=== PATIENT | male | born 1975 | race Caucasian/White ===

== ENCOUNTER 2018-04-16 11:41 | Observation (INO) ==
[2018-04-16 12:15] LABS: Basophils # 0.1 K/mcL (0.0-0.2); Basophils % 0.7 %; Eosinophils # 0.5 K/mcL (0.0-0.6); Eosinophils % 4.8 %; Hematocrit 41.7 % (37.5-50.1); Hemoglobin 13.7 g/dL (12.9-16.9); Immature Granulocytes % 1.1 % (0-4); Lymphocytes # 2.5 K/mcL (0.6-4.6); Lymphocytes % 25.5 %; Mean Corpuscular HGB Conc 32.9 g/dL (31.6-35.5); Mean Corpuscular Hemoglobin 26.9 pg (28.0-33.3); Mean Corpuscular Volume 81.8 fL (83.0-100.0); Mean Platelet Volume 10.8 fL (9.4-12.4); Monocytes # 0.8 K/mcL (0.0-1.3); Monocytes % 7.8 %; Neutrophils # 5.9 K/mcL (1.6-8.9); Platelet Count 224 K/mcL (140-400); Red Cell Distribution Width 13.1 % (11.5-14.5); Segmented Neutrophils % 60.1 %
[2018-04-16 12:36] LABS: BUN/Creatinine Ratio 17 (6-26); Blood Urea Nitrogen 14 mg/dL (6-20); Carbon Dioxide 27 mEq/L (23-29); Chloride 103 mEq/L (98-107); Glucose 119 mg/dL (70-105); Osmolality,Calculated 284 (280-300); Potassium 4.2 mEq/L (3.5-5.1); Sodium 136 mEq/L (136-145); eGFR For Non-African Americans > 60 (> 60)
[2018-04-16 12:38] LABS: Troponin I < 0.03 ng/mL (< 0.04)
--- NOTE | 2018-04-16 13:05 | Emergency Department Note ---
Disposition Clinical Impression: Exertional dyspnea Disposition: Admitted As Inpatient Condition: Fair Time of Disposition: 19:44 General Adult HPI - General Chief complaint: ED Arrhythmia/Palpitations Stated complaint: HHR Time Seen by Provider: 04/16/18 11:51 Source: patient, family Mode of arrival: ambulatory Limitations: no limitations Nursing Notes Reviewed: Yes Vital Signs Reviewed: Yes - History of Present Illness HPI Narrative: Patient is a 42-year-old male with a past medical history of hypertension presents to the emergency department for exertional dyspnea and palpitations. Patient states over the past week whenever he is tender to climb stairs by time he gets to the top he feels like he is short of breath and that his heart is racing. States this is not normal for him. He denies any associated chest pain. No recent fevers, cough, nausea, vomiting, abdominal pain or other associated symptoms. Pain Scale: 0 - Related Data Home Medications Medication Instructions Recorded Confirmed Lisinopril [Zestril] 40 mg PO DAILY 04/16/18 04/16/18 Naproxen Sodium [Aleve] 440 mg PO DAILY 04/16/18 04/16/18 Allergies Allergy/AdvReac Type Severity Reaction Status Date / Time No Known Allergies Allergy Verified 04/16/18 11:46 All systems ED: reviewed and negative except as stated. Review of Systems: As Per HPI Constitutional: Denies: fever, chills Cardiovascular: Reports: dyspnea on exertion. Denies: chest pain, palpitations, edema, syncope Respiratory: Denies: cough, dyspnea, wheezes Gastrointestinal: Denies: abdominal pain, nausea, vomiting Musculoskeletal: Denies: back pain, neck pain Integumentary: Denies: rash Neurological: Denies: headache, weakness, numbness, paresthesias Past Medical History - Past Medical History Attestation: Yes The following information was validated with the patient. Medical history: Reports: hypertension Psychiatric history: Reports: no psych history - Social History Smoking Status: Never smoker Smokeless Tobacco Status: No Alcohol use: Reports: occasionally Drug use: Reports: none Physical Exam CONSTITUTIONAL: Well-appearing; well-nourished; A&O X 3, in no apparent distress. HEAD: Normocephalic; atraumatic EYES: PERRL, no scleral icterus NOSE: The nose is normal in appearance without rhinorrhea NECK: No JVD or distended neck veins RESP: Normal chest excursion with respiration; breath sounds clear and equal bilaterally; no wheezes, rhonchi, or rales CARD: Regular rhythm, without murmurs, rub or gallop ABD: Non-distended; non-tender, soft, without rigidity, rebound or guarding,no pulsatile mass CHEST: No pain with palpation SKIN: Normal for age and race; warm and dry without diaphoresis ; no apparent lesions EXTREMITIES: Pulses are 2 plus and equal times 4 extremities, no peripheral edema or calf muscle pain - General Limitations: no limitations General appearance: alert, in no apparent distress Course Course Narrative: Patient underwent evaluation for his exertional dyspnea as well as palpitations. His CBC, d-dimer as well as his metabolic panel were unremarkable. Troponin was negative. Discussed patient's case with hospitalist on-call and my concern of this recent onset of palpitations as well as dyspnea with exertion upstairs.. Except the patient for further observation and evaluation. Vital Signs Temperature 98.5 F 04/16/18 11:45 Pulse Rate 107 04/16/18 11:45 Respiratory Rate 20 04/16/18 11:45 Blood Pressure 123/86 04/16/18 11:45 O2 Sat by Pulse Oximetry 99 04/16/18 11:45 Temperature 98.4 F 04/16/18 17:35 Pulse Rate 96 04/16/18 17:35 Respiratory Rate 17 04/16/18 17:35 Blood Pressure 139/86 04/16/18 17:35 O2 Sat by Pulse Oximetry 96 04/16/18 17:35 Oxygen Delivery Oxygen Delivery Room Air Medical Decision Making - Medical Records Medical records reviewed: Yes I reviewed the patient's medical records. - Lab Data Lab results reviewed: Yes I reviewed the patient's lab results. Result diagrams: 04/16/18 12:00 04/16/18 12:00 Lab Results 04/16/18 04/16/18 04/16/18 Range/Units 12:00 12:00 12:00 WBC 9.8 (4.3-11.1) K/mcL RBC 5.10 (4.19-5.50) M/mcL Hgb 13.7 (12.9-16.9) g/dL Hct 41.7 (37.5-50.1) % MCV 81.8 L (83.0-100.0) fL MCH 26.9 L (28.0-33.3) pg MCHC 32.9 (31.6-35.5) g/dL RDW 13.1 (11.5-14.5) % Plt Count 224 (140-400) K/mcL MPV 10.8 (9.4-12.4) fL Immature Gran % 1.1 (0-4) % Seg Neutrophils % 60.1 % Lymphocytes % 25.5 % Monocytes % 7.8 % Eosinophils % 4.8 % Basophils % 0.7 % Neutrophils # 5.9 (1.6-8.9) K/mcL Lymphocytes # 2.5 (0.6-4.6) K/mcL Monocytes # 0.8 (0.0-1.3) K/mcL Eosinophils # 0.5 (0.0-0.6) K/mcL Basophils # 0.1 (0.0-0.2) K/mcL D-Dimer (0-500) ng/mLFEU Sodium 136 (136-145) mEq/L Potassium 4.2 (3.5-5.1) mEq/L Chloride 103 (98-107) mEq/L Carbon Dioxide 27 (23-29) mEq/L BUN 14 (6-20) mg/dL Creatinine 0.84 (0.70-1.30) mg/dL Est GFR ( Amer) > 60 (> 60) Est GFR (Non-Af Amer) > 60 (> 60) BUN/Creatinine Ratio 17 (6-26) Glucose 119 H (70-105) mg/dL Calculated Osmolality 284 (280-300) Calcium 10.0 (8.6-10.3) mg/dL Troponin I < 0.03 (< 0.04) ng/mL B-Natriuretic Peptide 22 (Less than 100) pg/mL 04/16/18 Range/Units 15:18 WBC (4.3-11.1) K/mcL RBC (4.19-5.50) M/mcL Hgb (12.9-16.9) g/dL Hct (37.5-50.1) % MCV (83.0-100.0) fL MCH (28.0-33.3) pg MCHC (31.6-35.5) g/dL RDW (11.5-14.5) % Plt Count (140-400) K/mcL MPV (9.4-12.4) fL Immature Gran % (0-4) % Seg Neutrophils % % Lymphocytes % % Monocytes % % Eosinophils % % Basophils % % Neutrophils # (1.6-8.9) K/mcL Lymphocytes # (0.6-4.6) K/mcL Monocytes # (0.0-1.3) K/mcL Eosinophils # (0.0-0.6) K/mcL Basophils # (0.0-0.2) K/mcL D-Dimer 382 (0-500) ng/mLFEU Sodium (136-145) mEq/L Potassium (3.5-5.1) mEq/L Chloride (98-107) mEq/L Carbon Dioxide (23-29) mEq/L BUN (6-20) mg/dL Creatinine (0.70-1.30) mg/dL Est GFR ( Amer) (> 60) Est GFR (Non-Af Amer) (> 60) BUN/Creatinine Ratio (6-26) Glucose (70-105) mg/dL Calculated Osmolality (280-300) Calcium (8.6-10.3) mg/dL Troponin I (< 0.04) ng/mL B-Natriuretic Peptide (Less than 100) pg/mL - Radiology Data Radiology results reviewed: Yes I reviewed the patient's radiology results. Chest X-Ray 04/16/18 11:57 IMPRESSION: No acute process. D/ / Gamal Braun MD / Gamal Braun MD Interpreting Provider: Gamal Braun MD - EKG Data EKG #1 EKG attestation: Yes I reviewed and interpreted this EKG.
[2018-04-16] MEDS ORDERED: Aspirin 325 MG TABLET PO ONE (13:21)
--- NOTE | 2018-04-16 13:21 | Emergency Department Note ---
Disposition Clinical Impression: Exertional dyspnea Disposition: Admitted As Inpatient Referrals: Ada Hughes, CLINICAL APPLICATION CONSULTANT [Primary Care Provider] - Forms: ED Satisfaction Letter General Adult HPI - General Chief complaint: ED Arrhythmia/Palpitations Stated complaint: HHR Time Seen by Provider: 04/16/18 11:51 Source: patient, family Limitations: no limitations - History of Present Illness Pain Scale: 0 - Related Data Allergies Allergy/AdvReac Type Severity Reaction Status Date / Time No Known Allergies Allergy Verified 04/16/18 11:46 Past Medical History - Past Medical History Medical history: Reports: hypertension Psychiatric history: Reports: no psych history - Social History Smoking Status: Never smoker Smokeless Tobacco Status: No Alcohol use: Reports: occasionally Drug use: Reports: none Physical Exam - General Limitations: no limitations General appearance: alert, in no apparent distress Course Vital Signs Temperature 98.5 F 04/16/18 11:45 Pulse Rate 107 04/16/18 11:45 Respiratory Rate 20 04/16/18 11:45 Blood Pressure 123/86 04/16/18 11:45 O2 Sat by Pulse Oximetry 99 04/16/18 11:45 Temperature 98.5 F 04/16/18 11:49 Pulse Rate 107 04/16/18 11:49 Respiratory Rate 20 04/16/18 11:49 Blood Pressure 123/86 04/16/18 11:49 O2 Sat by Pulse Oximetry 99 04/16/18 11:49 Oxygen Delivery Oxygen Delivery Room Air Medical Decision Making - Lab Data Result diagrams: 04/16/18 12:00 04/16/18 12:00 Lab Results 04/16/18 04/16/18 04/16/18 Range/Units 12:00 12:00 12:00 WBC 9.8 (4.3-11.1) K/mcL RBC 5.10 (4.19-5.50) M/mcL Hgb 13.7 (12.9-16.9) g/dL Hct 41.7 (37.5-50.1) % MCV 81.8 L (83.0-100.0) fL MCH 26.9 L (28.0-33.3) pg MCHC 32.9 (31.6-35.5) g/dL RDW 13.1 (11.5-14.5) % Plt Count 224 (140-400) K/mcL MPV 10.8 (9.4-12.4) fL Immature Gran % 1.1 (0-4) % Seg Neutrophils % 60.1 % Lymphocytes % 25.5 % Monocytes % 7.8 % Eosinophils % 4.8 % Basophils % 0.7 % Neutrophils # 5.9 (1.6-8.9) K/mcL Lymphocytes # 2.5 (0.6-4.6) K/mcL Monocytes # 0.8 (0.0-1.3) K/mcL Eosinophils # 0.5 (0.0-0.6) K/mcL Basophils # 0.1 (0.0-0.2) K/mcL Sodium 136 (136-145) mEq/L Potassium 4.2 (3.5-5.1) mEq/L Chloride 103 (98-107) mEq/L Carbon Dioxide 27 (23-29) mEq/L BUN 14 (6-20) mg/dL Creatinine 0.84 (0.70-1.30) mg/dL Est GFR ( Amer) > 60 (> 60) Est GFR (Non-Af Amer) > 60 (> 60) BUN/Creatinine Ratio 17 (6-26) Glucose 119 H (70-105) mg/dL Calculated Osmolality 284 (280-300) Calcium 10.0 (8.6-10.3) mg/dL Troponin I < 0.03 (< 0.04) ng/mL B-Natriuretic Peptide 22 (Less than 100) pg/mL Attestation Statement - Attestation Attestation: I examined this patient and my medical decision-making was reviewed with the Resident Physician. I agree with the documented findings, disposition and treatment plan as described except to the extent set forth below. 42 year old male presents to the eD with complaints of exetional dyspnea especially when going up stairs. With a moderate heart score for aCS we will admit ot medicine.
[2018-04-16] MEDS ORDERED: Naloxone 0.4 MG/ML INJ IVP PRN (15:06)
--- NOTE | 2018-04-16 15:12 | Internal Med History&Physical ---
Date of Encounter: 04/16/18 Time of Encounter: 15:10 Internal Medicine - H&P: HPI Chief complaint: SOB Admitted From: Home Plans for Post Hospital Care: Home History of present illness: Mr. Hollingsworth is a 42 year old male with PMH HTN and suspected JULIANNE presented to [facility] on 04/16/2018 with complaints of shortness of breath. He was placed in observation status for further workup and treatment. Information obtained from chart review and patient report. Patient reports intermittent dyspnea with exertion over the last week which worsened today. Says he only notices this shortness of breath and diffuse doing strenuous activity such as going up the stairs. Today he said he woke up did not feel well so went back upstairs when he experienced severe dyspnea, palpitations, shakiness and nausea. Episode lasted a few minutes but told his that "he didn't feel right" and he was concerned so they came to the ER. No symptom recurrence thus far. No chest pain or shortness of breath on my exam. Past Med Surg Social Fam HX - Past Medical History Medical history: hypertension Psychiatric history: no psych history - Past Surgical History Surgical History: no surgical history - Social History Smoking Status: Never smoker Smokeless Tobacco Status: No Alcohol use: occasionally Drug use: none Internal Medicine - H&P: Meds Lisinopril [Zestril] 40 mg PO DAILY 04/16/18 [History] Naproxen Sodium [Aleve] 440 mg PO DAILY 04/16/18 [History] Allergy/AdvReac Type Severity Reaction Status Date / Time No Known Allergies Allergy Verified 04/16/18 11:46 All Systems PM: A 10-system review of systems was performed and is negative for pertinent findi ngs except as documented above in the HPI. - Constitutional Constitutional: no chills, no fever(s), no night sweats - EENT Eyes: no change in vision, no discharge, no pain, no photophobia Ears: no ear discharge, no ear pain, no tinnitus Nose, mouth and throat: no dysphagia, no nasal discharge, no neck pain, no sore throat - Cardiovascular Cardiovascular ROS IM: palpitations, no chest pain, no diaphoresis, no dyspnea, no lightheadedness, no syncope - Respiratory Respiratory: dyspnea, dyspnea on exertion, no cough, no wheezing, no excessive phlegm production - Gastrointestinal Gastrointestinal: no abdominal pain, no diarrhea, no hematemesis, no hem atochezia, no melena, no nausea, no vomiting - Musculoskeletal Musculoskeletal ROS IM: no numbness, no tingling - Integumentary Integumentary IM: no rash, no unusual bruising - Neurological Neurological ROS: no confusion, no convulsions, no focal weakness, no numbness, no tingling, no tremor(s) - Hematologic/Lymphatic Hematologic/Lymphatic: no easy bruising - Constitutional Vitals: Temp Pulse Resp BP Pulse Ox 98.5 F 83 18 129/89 98 04/16/18 11:49 04/16/18 13:50 04/16/18 13:50 04/16/18 13:50 04/16/18 13:50 General appearance: Present: A&O X 3, morbidly obese, pleasant, no acute distress Exam: . - Head Head exam: Present: atraumatic, normocephalic - Eye Eye exam: Present: PERRL, conjuntiva pink, sclera anicteric Pupils: Present: PERRL - Neck Neck exam general surgery: Present: supple, trachea midline. Absent: lymphadenopathy - Respiratory Respiratory exam: Present: CTAB. Absent: accessory muscle use, rales, rhonchi, wheezes - Cardiovascular Cardiovascular exam: Present: RRR, +S1, +S2. Absent: diastolic murmur, gallop, rubs, systolic murmur - GI/Abdominal GI/Abdominal exam: Present: normal bowel sounds, soft, no peritoneal signs. Absent: distended, tenderness - Extremities Exam Extremities exam: Present: warm, radial pulses palpable and symmetrical. Absent: calf tenderness, cyanotic, pedal edema - Neurological Exam Neurological exam: Present: CN II-XII intact, oriented X3, no focal deficits. Absent: pronater drift, facial droop, speech deficit - Skin Skin exam: Present: dry, intact Internal Med - H&P Results - Labs CBC & Chem 7: 04/16/18 12:00 04/16/18 12:00 Labs: Short CBC 04/16/18 Range/Units 12:00 WBC 9.8 (4.3-11.1) K/mcL Hgb 13.7 (12.9-16.9) g/dL Hct 41.7 (37.5-50.1) % Plt Count 224 (140-400) K/mcL Neutrophils # 5.9 (1.6-8.9) K/mcL BMP 04/16/18 12:00 Sodium 136 Potassium 4.2 Chloride 103 Carbon Dioxide 27 BUN 14 Creatinine 0.84 Glucose 119 H Calcium 10.0 Cardiac Enzymes 04/16/18 Range/Units 12:00 Troponin I < 0.03 (< 0.04) ng/mL - Impressions ITS Impressions Chest X-Ray 04/16/18 11:57 IMPRESSION: No acute process. D/ / Gamal Braun MD / Gamal Braun MD Interpreting Provider: Gamal Braun MD - Assessment and plan (1) Exertional dyspnea Current Visit: Yes Status: Acute Assessment and plan: presented with persistent exertional dyspnea. Etiology unknown at this time. CXR nonacute. Does not appear to be fluid overloaded. Likely does not appear to be pneumonia/bronchitis. Suspect morbid obesity is likley contribute 18. Monitor on telemetry, cycle troponin. Check echo. D-dimer pending; if d-dimer is elevated then will need CTA. If d-dimer is normal check CT chest without contrast. (2) Tachycardia Current Visit: Yes Status: Acute Assessment and plan: presented with palpitations. HRs in the low 100s. EKG not available for review but apparently with no acute ST changes. Monitor on telemetry. Echo pending (3) HTN (hypertension) Current Visit: Yes Status: Acute Assessment and plan: per hx. BP controlled. Continue home BP medication. Monitor BP and titrate PRN Qualifiers: Hypertension type: essential hypertension Qualified Code(s): I10 - Essential (primary) hypertension (4) DVT prophylaxis Current Visit: Yes Status: Acute Assessment and plan: lovenox - Time Spent With Patient Total time spent is greater than 50% in coordination of care (as documented) at patient's floor/unit and/or counseling patient:
[2018-04-17 00:58] LABS: Hematocrit 41.1 % (37.5-50.1); Hemoglobin 13.4 g/dL (12.9-16.9); Mean Corpuscular HGB Conc 32.6 g/dL (31.6-35.5); Mean Corpuscular Hemoglobin 26.5 pg (28.0-33.3); Mean Corpuscular Volume 81.4 fL (83.0-100.0); Mean Platelet Volume 10.7 fL (9.4-12.4); Platelet Count 222 K/mcL (140-400); Red Blood Count 5.05 M/mcL (4.19-5.50); Red Cell Distribution Width 13.2 % (11.5-14.5)
[2018-04-17 01:18] LABS: Alanine Aminotransferase 54 Units/L (7-52); Albumin/Globulin Ratio 1.3 (1.1-2.2); Alkaline Phosphatase 55 Units/L (34-104); Aspartate Amino Transferase 40 Units/L (13-39); BUN/Creatinine Ratio 16 (6-26); Bilirubin,Total 0.5 mg/dL (0.3-1.0); Blood Urea Nitrogen 13 mg/dL (6-20); Calcium 9.7 mg/dL (8.6-10.3); Carbon Dioxide 25 mEq/L (23-29); Chloride 103 mEq/L (98-107); Globulin 3.1 g/dL (2.4-3.5); Glucose 112 mg/dL (70-105); Osmolality,Calculated 281 (280-300); Sodium 135 mEq/L (136-145); Total Protein 7.1 g/dL (6.4-8.9); eGFR For Non-African Americans > 60 (> 60)
[2018-04-17] MEDS ORDERED: *HR* Enoxaparin 40 MG/0.4 ML SYRINGE SQ SCH (06:00)
[2018-04-17] MEDS ORDERED: Perflutren Lipid Microsphere 1.3 ML in 0.9 % Sodium Chloride 8.7 ML IVP ONE (07:06)
[2018-04-17] MEDS ORDERED: Lisinopril 20 MG TABLET PO SCH (09:00)
[2018-04-17] MEDS ORDERED: Aspirin 81 MG TAB.CHEW PO SCH (09:00)
[2018-04-17 11:35] VITALS: BP 138/77
--- NOTE | 2018-04-17 11:58 | Discharge Summary ---
- NOTES TO OUTPATIENT PROVIDER Notes to Outpatient Provider: Follow with PCP in one week. Please go for out patient sleep study as scheduled. Date of Encounter: 04/17/18 Time of Encounter: 11:49 - Discharge Diagnosis (1) Exertional dyspnea Priority: Primary Status: Acute (2) Obstructive sleep apnea Priority: Secondary Status: Acute (3) HTN (hypertension) Priority: Secondary Status: Acute Qualifiers: Hypertension type: essential hypertension Qualified Code(s): I10 - Essential (primary) hypertension (4) DVT prophylaxis Priority: Secondary Status: Acute (5) Tachycardia Priority: Secondary Status: Acute (6) Morbid obesity with BMI of 40.0-44.9, adult Priority: Secondary Status: Acute Hospital course: Mr. Hollingsworth is a 42 year old male with PMH of HTN, morbid obesity and suspected JULIANNE who uses his father in law's CPAP now he presented to [facility] on 04/16/2018 with complaints of shortness of breath, feeling weak and lethargic during day time. Patient was admitted in the hospital and placed him on scientologist. His serial troponin came back is negative. His EKG did not show any traditional changes. His shortness of breath seems to more like hypoventilation syndrome due to his morbid obesity and sleep apnea. Recommended patient to go for out patient sleep study which we scheduled here. Also placed him on albuterol inhaler as needed for shortness of breath. Will discharge him home in a stable condition today. Reviewed his echocardiogram which is preserved LVEF @ 65%, No wall motion abnormality. - Time Spent with Patient Total time spent providing and/or coordinating discharge services: - Discharge Medications Prescriptions: Albuterol Sulfate [Proair Respiclick] 2 puff IH BID #1 aer.[email or web address] Aspirin 81 mg PO DAILY #30 tab.chew Home Medications: Lisinopril [Zestril] 40 mg PO DAILY 04/16/18 [History] Albuterol Sulfate [Proair Respiclick] 2 puff IH BID #1 aer.pow.ba 04/17/18 [Rx] Aspirin 81 mg PO DAILY #30 tab.chew 04/17/18 [Rx] Naproxen Sodium [Aleve] 440 mg PO DAILY PRN #0 04/17/18 [Rx] Allergies/Adverse Reactions: Allergy/AdvReac Type Severity Reaction Status Date / Time No Known Allergies Allergy Verified 04/16/18 11:46 Date of admission: 04/16/18 16:54 Primary care physician: Ada Hughes CNP - Constitutional Vitals: Temp Pulse Resp BP Pulse Ox 97.8 F 93 16 138/77 94 04/17/18 11:34 04/17/18 11:34 04/17/18 11:34 04/17/18 11:34 04/17/18 11:34 General appearance: Present: A&O X 3, morbidly obese, pleasant, no acute distress Exam: Gen: Alert, awake, Oriented to time,place and person Chest: Diminished breath sounds B/L, No wheezing, No crackles, No rales Heart: S1S2+ RRR No murmurs Abd: Soft, NT, BS +, No organomegaly Ext: No edema, pulses are palpable, No calf tenderness Neuro : Benign findings Skin: No rash. - Patient Status Disposition: Home, Self-Care Condition: Fair Overall status at discharge: patient is back to baseline - Discharge Instructions Follow Up With: Ada Hughes CNP [Primary Care Provider] - 04/20/18 11:00 am Deanna Edwards MD [Partnered Physician] - 04/20/18 8:30 am - Diet and Activity Activity: increase activity as tolerated Diet: low salt diet
--- NOTE | 2018-04-17 16:23 | Electrocardiograph Report ---
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
== END 2018-04-17 13:31 | disposition home or self-care (01) ==
LOC: 3BNU 11:41 → EMEROOARM 11:41 → SUATTDRO 16:54 → 3BNU 17:19
PROVIDERS: ADMIT Internal Medicine; ATTEND Family Medicine